=== PATIENT | male | born 1995 | race Caucasian/White ===

== ENCOUNTER 2017-12-11 20:39 | Emergency (ER) | payer OTHER, SELFPAY ==
[2017-12-11 20:41] VITALS: BP 127/85; PULSE 110; RESP 18; TEMP 36.8; O2SAT 97; BMI 21.4
--- NOTE | 2017-12-11 21:51 | ED.VISSUMM ---
- ER Visit Summary Date of Service: 12/11/17 Chief Complaint: Left ankle pain History of Present Illness: The patient is a 22 M presenting with left ankle pain. Patient states he rolled his left ankle while skateboarding. He did not hit his head or lose consciousness. He tried no medication prior to arrival. He is able to ambulate with pain. No previous ankle injury. No other injuries. Physical Examination: Vitals are stable. Patient is afebrile. Alert no acute distress. HEENT exam is unremarkable. Neck is supple. Lungs are clear and equal bilaterally. Heart is regular rate and rhythm. Extremities left lateral ankle tenderness and swelling. No fifth metatarsal tenderness. No Achilles tendon tenderness. No proximal fibular tenderness. Skin is warm and dry. Remainder of exam is unremarkable. Emergency Department Course and Treatment: Ice pack was applied. X-ray left ankle shows soft tissue swelling. No fracture. He is advised to ice and elevate. He is given a boot orthosis, he has crutches at home. Advised use NSAIDs for pain. Advised to follow-up with primary care physician. Advised to return to ED for worsening complaints. Disposition: Discharge home Impression: Left ankle sprain This note was generated with [employer] dictation software. It may contain incorrect words, spelling, and punctuation that were not noted in review of the chart prior to signing ED Disposition - Plan for ED Patient: Chief Complaint: Lower Extremity Injury Referrals: Care Physician,No Primary [Primary Care Provider] -
--- NOTE | 2017-12-12 00:02 | ED.DEP ---
ED Disposition - Plan for ED Patient: Chief Complaint: Lower Extremity Injury Instructions: ED Sprain Ankle W X Ray Referrals: Care Physician,No Primary [Primary Care Provider] -
[2017-12-12 00:18] VITALS: BP 126/76; PULSE 78; RESP 16; O2SAT 98
== END 2017-12-12 00:23 | disposition home or self-care (01) ==
PROVIDERS: Emergency Provider Emergency Medicine
DX: S93.402A Sprain of unspecified ligament of left ankle, initial encounter (principal); X50.1XXA Overexertion from prolonged static or awkward postures, initial encounter; Y93.51 Activity, roller skating (inline) and skateboarding; Y92.9 Unspecified place or not applicable; Y99.9 Unspecified external cause status
CPT/HCPCS: 73610; 99283